=== PATIENT | male | born 1955 | race Hispanic/Latino ===

== ENCOUNTER 2018-12-21 18:40 | Emergency (ER) | payer OTHER, SELFPAY ==
[2018-12-21] MEDS ORDERED: TETANUS/DIPHTHERIA TOXOID [ADULT] 0.5 ML VIAL IM ONE (19:21)
== END 2018-12-21 19:59 | disposition home or self-care (01) ==
LOC: EDBD 18:40 → EDH 18:40
DX: S61.411A Laceration without foreign body of right hand, initial encounter (principal); E11.9 Type 2 diabetes mellitus without complications; X58.XXXA Exposure to other specified factors, initial encounter; Y93.89 Activity, other specified; Y92.89 Other specified places as the place of occurrence of the external cause; Y99.8 Other external cause status
CPT/HCPCS: 12001; 73130; 90471; 90714